=== PATIENT | male | born 1950 | race Caucasian/White ===

== ENCOUNTER 2024-11-06 12:12 | Inpatient (IN) | payer MEDICARE ==
[2024-11-06] VITALS (10 sets, daily range): BP systolic 111–159; BP diastolic 59–68; TEMP 98.2–99.8; O2SAT 96–100
[~2024-11-06] VITALS: Ht 180.3 cm; Wt 94.0 kg
[2024-11-06 13:24] LABS: BASO # 0.1 10^3/uL (0.0-0.2); BASO % 5.0 % (0.0-1.0); EOS # 0.1 10^3/uL (0.0-0.5); EOS % 3.9 % (0.0-3.0); LYMPH # 0.4 10^3/uL (1.5-5.0); LYMPH % 19.6 % (24.0-44.0); MONO # 0.2 10^3/uL (0.0-0.8); MONO % 10.6 % (2.0-8.0); NEUTROPHILS # 1.1 10^3/uL (1.5-8.5); NEUTROPHILS % 59.2 % (36.0-66.0); PLATELET COUNT, AUTOMATED 120 10^3/uL (150-450)
[2024-11-06 14:02] LABS: ALT/SGPT 20 U/L (7.0-40); AST/SGOT 20 U/L (<34); CALCIUM LEVEL 5.0 MG/DL (8.3-10.6); CARBON DIOXIDE LEVEL 29 MMOL/L (20-31); CHLORIDE LEVEL 102 MMOL/L (98-107); CREATININE FOR GFR 1.25 MG/DL (0.70-1.30); GLOMERULAR FILTRATION RATE 61.6 (>42); MAGNESIUM LEVEL < 0.5 MG/DL (1.8-2.4); POTASSIUM SERUM 2.8 MMOL/L (3.5-5.1); SODIUM LEVEL 144 MMOL/L (136-145)
[2024-11-06] MEDS ORDERED: LENA5CAP PO (14:20)
[2024-11-06] MEDS ORDERED: TAMS1CAP17 PO (14:22)
[2024-11-06] MEDS ORDERED: LISI40TA10 PO (14:22)
[2024-11-06] MEDS ORDERED: SILD20TA64 PO (14:23)
[2024-11-06] MEDS ORDERED: ELIQ5TAB PO (14:24)
[2024-11-06] MEDS ORDERED: MAGN400T2 PO (14:27)
[2024-11-06] MEDS ORDERED: POTA99TA10 PO (14:27)
[2024-11-06] MEDS ORDERED: METO1TAB33 PO (14:31)
[2024-11-06] MEDS ORDERED: SPIR-10 PO (14:31)
[2024-11-06] MEDS ORDERED: TORS20TA2 PO (14:31)
[2024-11-06] MEDS ORDERED: PREG75CA3 PO (14:33)
[2024-11-06] MEDS ORDERED: DIGO0.123 PO (14:33)
[2024-11-06] MEDS ORDERED: D 1010004 PO (14:35)
[2024-11-06] MEDS ORDERED: THERTAB52 PO (14:35)
[2024-11-06] MEDS ORDERED: GNP1000T11 PO (14:35)
[2024-11-06] MEDS ORDERED: CO-E200C PO (14:36)
[2024-11-06] MEDS ORDERED: B-12100010 PO (14:38)
[2024-11-06] MEDS ORDERED: TRAD5TAB PO (14:38)
[2024-11-06] MEDS ORDERED: OMEP-173 PO (14:38)
[2024-11-06] MEDS ORDERED: HOME MED LIST COMPLETE! XX SCH (14:40)
[2024-11-06] MEDS: MAG SULF 1GM/100ML (MAG RUN) 1 GM in IV 1 EA IV ONE (14:43)
[2024-11-06] MEDS: CALCIUM CHLORIDE 10% 1 GM in D5W 100 ML IV SCH (15:55)
[2024-11-06] MEDS ORDERED: ISOVUE-370 76% 100 ML VIAL As Ordered ONE (16:56)
[2024-11-06] MEDS: KCL 40MEQ in NS 1000ML 1,000 ML IV SCH (17:50)
[2024-11-06] MEDS: POTASSIUM CHLORIDE 10MEQ SR TABLET PO ONE (17:50)
[2024-11-06] MEDS: NS (Normal Saline) 0.9% 1,000 ML IV ONE (17:51)
[2024-11-06] MEDS: CALCIUM GLUCONATE 1,000 MG in DEXTROSE 5% (D5W) MINI-BAG PLU 100 ML IV SCH (20:58)
[2024-11-06] MEDS: TAMSULOSIN 0.4 MG CAP PO SCH (20:58)
[2024-11-06] MEDS: APIXABAN 5 MG TAB PO SCH (20:59)
[2024-11-06] MEDS: METOPROLOL SUCC. 50 MG *XL* TAB PO SCH (20:59)
[2024-11-06] MEDS ORDERED: ENTER DRUG NAME HERE (PATIENT'S OWN MED) PO SCH (21:00)
[2024-11-06] MEDS: MAG SULF 1GM/100ML (MAG RUN) 1 GM in IV 1 EA IV SCH (21:05)
[2024-11-06] MEDS: ACETAMINOPHEN 325 MG TAB PO ONE (22:00)
[2024-11-06] MEDS: DIGOXIN 0.125 MG TAB PO SCH (22:01)
[2024-11-07 02:03] LABS: CALCIUM LEVEL 5.5 MG/DL (8.3-10.6); CARBON DIOXIDE LEVEL 27.0 MMOL/L (20-31); CHLORIDE LEVEL 105.0 MMOL/L (98-107); CREATININE FOR GFR 1.0 MG/DL (0.70-1.30); GLOMERULAR FILTRATION RATE 80.5 (>42); MAGNESIUM LEVEL 1.3 MG/DL (1.8-2.4); POTASSIUM SERUM 2.8 MMOL/L (3.5-5.1); SODIUM LEVEL 143.0 MMOL/L (136-145)
[2024-11-07] MEDS ORDERED: CALCIUM CHLORIDE 10% 1 GM in D5W 100 ML IV ONE (02:10)
[2024-11-07] MEDS: MAG SULF 1GM/100ML (MAG RUN) 1 GM in IV 1 EA IV SCH (02:40)
[2024-11-07] MEDS: POTASSIUM CHLORIDE 10MEQ SR TABLET PO ONE ×2 (02:40→12:39)
[2024-11-07] MEDS: CALCIUM GLUCONATE 1,000 MG in DEXTROSE 5% (D5W) MINI-BAG PLU 100 ML IV ONE (03:34)
[2024-11-07 03:56] VITALS: BP 116/61; TEMP 99.8; O2SAT 98
[2024-11-07] MEDS: ACETAMINOPHEN 500 MG TAB PO ONE (04:19)
[2024-11-07 06:31] LABS: PLATELET COUNT, AUTOMATED 110 10^3/uL (150-450)
[2024-11-07 07:00] LABS: CALCIUM LEVEL 5.8 MG/DL (8.3-10.6); CARBON DIOXIDE LEVEL 26.0 MMOL/L (20-31); CHLORIDE LEVEL 107.0 MMOL/L (98-107); CREATININE FOR GFR 0.94 MG/DL (0.70-1.30); GLOMERULAR FILTRATION RATE 86.7 (>42); MAGNESIUM LEVEL 1.8 MG/DL (1.8-2.4); POTASSIUM SERUM 3.3 MMOL/L (3.5-5.1); SODIUM LEVEL 143.0 MMOL/L (136-145)
[2024-11-07 07:38] VITALS: TEMP 98.7; O2SAT 98
[2024-11-07] MEDS: OMEPRAZOLE 20MG CAP PO SCH (08:46)
[2024-11-07] MEDS: PREGABALIN 75 MG CAP PO SCH (08:46)
[2024-11-07] MEDS: CYANOCOBALAMIN 500 MCG TAB PO SCH (08:47)
[2024-11-07] MEDS ORDERED: DIGOXIN 0.125 MG TAB PO SCH (09:00)
[2024-11-07 11:35] VITALS: BP 119/58; TEMP 98.3; O2SAT 98
[2024-11-07] MEDS: CALCIUM GLUCONATE 1,000 MG in DEXTROSE 5% (D5W) MINI-BAG PLU 100 ML IV SCH (12:39)
[2024-11-07] MEDS: KCL 20MEQ in NS 1000ML 1,000 ML IV SCH (12:43)
[2024-11-07] MEDS: CALCIUM CARBONATE 500 MG CHEW U/D PO SCH (14:38)
[2024-11-07] MEDS: MAGNESIUM OXIDE 400 MG TAB PO SCH (14:38)
[2024-11-07 15:52] VITALS: BP 131/61; TEMP 97.6; O2SAT 99
[2024-11-07 19:57] VITALS: BP 129/66; TEMP 97.7; O2SAT 98
[2024-11-07 23:56] VITALS: BP 107/57; TEMP 97.8; O2SAT 95
[2024-11-08] MEDS: ACETAMINOPHEN 325 MG TAB PO PRN (03:11)
[2024-11-08 03:19] VITALS: BP 106/64; TEMP 96.9; O2SAT 98
[2024-11-08 03:59] VITALS: BP 119/57; TEMP 97.1; O2SAT 98
[2024-11-08 06:18] LABS: PLATELET COUNT, AUTOMATED 102 10^3/uL (150-450)
[2024-11-08 06:47] LABS: ATYPICAL LYMPH 1 % (0-5); BASOPHILS 14 % (0-1); EOSINOPHILS 10 % (0-3); LYMPHOCYTES 23 % (16-44); MONOCYTES 5 % (0-5); NEUTROPHILS 43 % (28-66)
[2024-11-08 06:48] LABS: PLATELET ESTIMATE DECREASED (NORMAL)
[2024-11-08 06:51] LABS: CALCIUM LEVEL 5.7 MG/DL (8.3-10.6); CARBON DIOXIDE LEVEL 25 MMOL/L (20-31); CHLORIDE LEVEL 111 MMOL/L (98-107); CREATININE FOR GFR 0.78 MG/DL (0.70-1.30); GLOMERULAR FILTRATION RATE > 90.0 (>42); MAGNESIUM LEVEL 1.4 MG/DL (1.8-2.4); POTASSIUM SERUM 3.7 MMOL/L (3.5-5.1); SODIUM LEVEL 142 MMOL/L (136-145)
[2024-11-08] MEDS: CALCIUM GLUCONATE 1,000 MG in DEXTROSE 5% (D5W) MINI-BAG PLU 100 ML IV ONE (07:04)
[2024-11-08 07:15] VITALS: BP 126/64; TEMP 97.4; O2SAT 97
[2024-11-08] MEDS ORDERED: MAG SULF 1GM/100ML (MAG RUN) 1 GM in IV 1 EA IV ONE (07:25)
[2024-11-08] MEDS: MAG SULF 1GM/100ML (MAG RUN) 1 GM in IV 1 EA IV SCH (07:42)
[2024-11-08 07:51] LABS: PHOSPHORUS LEVEL 1.8 MG/DL (2.4-5.1); PTH INTACT 281.2 PG/ML (18.5-88.0)
[2024-11-08] MEDS: POTASSIUM CHLORIDE 10MEQ SR TABLET PO SCH (09:14)
[2024-11-08] MEDS: CALCITRIOL 0.25 MCG CAP (S0169) PO SCH (10:49)
[2024-11-08] MEDS: SPIRONOLACTONE 25 MG TAB PO SCH (10:49)
[2024-11-08] MEDS: SODIUM PHOSPHATE INJ 20 MMOL in D5W 250 ML IV ONE (12:16)
[2024-11-08] MEDS: CALCIUM CARBONATE 500 MG CHEW U/D PO SCH (12:17)
[2024-11-08 12:21] VITALS: BP 128/79; O2SAT 93
[2024-11-08 19:11] VITALS: BP 164/72; TEMP 97.3; O2SAT 98
[2024-11-08 23:01] VITALS: BP 141/72; TEMP 98.1; O2SAT 96
[2024-11-09 03:04] VITALS: BP 138/62; TEMP 97; O2SAT 95
[2024-11-09 05:49] LABS: BASO # 0.2 10^3/uL (0.0-0.2); BASO % 12.4 % (0.0-1.0); EOS # 0.1 10^3/uL (0.0-0.5); EOS % 9.3 % (0.0-3.0); LYMPH # 0.3 10^3/uL (1.5-5.0); LYMPH % 25.6 % (24.0-44.0); MONO # 0.1 10^3/uL (0.0-0.8); MONO % 8.5 % (2.0-8.0); NEUTROPHILS % 42.6 % (36.0-66.0); PLATELET COUNT, AUTOMATED 131 10^3/uL (150-450)
[2024-11-09 05:52] LABS: NEUTROPHILS # 0.6 10^3/uL (1.5-8.5)
[2024-11-09 06:24] LABS: CALCIUM LEVEL 6.5 MG/DL (8.3-10.6); CARBON DIOXIDE LEVEL 27 MMOL/L (20-31); CHLORIDE LEVEL 110 MMOL/L (98-107); CREATININE FOR GFR 0.73 MG/DL (0.70-1.30); GLOMERULAR FILTRATION RATE > 90.0 (>42); MAGNESIUM LEVEL 1.9 MG/DL (1.8-2.4); PHOSPHORUS LEVEL 1.8 MG/DL (2.4-5.1); POTASSIUM SERUM 3.6 MMOL/L (3.5-5.1); SODIUM LEVEL 141 MMOL/L (136-145)
[2024-11-09 08:29] VITALS: BP 144/64
[2024-11-09] MEDS: CALCIUM GLUCONATE 1,000 MG in DEXTROSE 5% (D5W) MINI-BAG PLU 100 ML IV ONE (08:30)
[2024-11-09] MEDS: MAG SULF 1GM/100ML (MAG RUN) 1 GM in IV 1 EA IV SCH (09:46)
[2024-11-09] MEDS ORDERED: LOPE2CAP PO (11:56)
[2024-11-09] MEDS ORDERED: POTA-136 PO (11:56)
[2024-11-09] MEDS ORDERED: CALC200T15 PO ×2 (11:56→12:22)
[2024-11-09] MEDS ORDERED: POTA50TAB PO (11:56)
[2024-11-09] MEDS ORDERED: CALC1CAP31 PO (11:56)
[2024-11-09] MEDS: SODIUM PHOSPHATE INJ 20 MMOL in D5W 250 ML IV ONE (12:19)
[2024-11-09] MEDS ORDERED: POTA-298 PO (12:22)
[2024-11-09] MEDS ORDERED: PHOS1TAB3 PO (12:22)
[2024-11-09] MEDS: LOPERAMIDE 2 MG CAPLET PO PRN (12:22)
== END 2024-11-09 15:47 | disposition home or self-care (01) | DRG 392 ==
LOC: M ED 12:12 → M ED INP 16:35 → M PCU 19:15
PROVIDERS: ADMIT Internal Medicine; ATTEND Internal Medicine
DX: R19.7 Diarrhea, unspecified (principal); D61.818 Other pancytopenia; E83.42 Hypomagnesemia; K21.9 Gastro-esophageal reflux disease without esophagitis; D46.9 Myelodysplastic syndrome, unspecified; I48.91 Unspecified atrial fibrillation; E87.6 Hypokalemia; N40.0 Benign prostatic hyperplasia without lower urinary tract symptoms; E53.8 Deficiency of other specified B group vitamins; I50.9 Heart failure, unspecified; R91.1 Solitary pulmonary nodule; E83.51 Hypocalcemia; E83.39 Other disorders of phosphorus metabolism; E11.51 Type 2 diabetes mellitus with diabetic peripheral angiopathy without gangrene; Z79.01 Long term (current) use of anticoagulants; I11.0 Hypertensive heart disease with heart failure; Z79.899 Other long term (current) drug therapy

== ENCOUNTER 2024-12-14 16:09 | Inpatient (IN) | payer MEDICARE ==
[~2024-12-14] VITALS: Ht 180.3 cm; Wt 92.9 kg
[~2024-12-14 16:09] MED LIST: B-12100010 PO; CALC1CAP31 PO; CALC200T15 PO; CO-E200C PO; D 1010004 PO; DIGO0.123 PO; ELIQ5TAB PO; GNP1000T11 PO; LENA5CAP PO; LISI40TA10 PO; LOPE2CAP PO; MAGN400T2 PO; METO1TAB33 PO; OMEP-173 PO; PHOS1TAB3 PO; POTA-136 PO; POTA-298 PO; POTA50TAB PO; POTA99TA10 PO; PREG75CA3 PO; SILD20TA64 PO; SPIR-10 PO; TAMS1CAP17 PO; THERTAB52 PO; TORS20TA2 PO; TRAD5TAB PO
[2024-12-14 16:55] LABS: BASO # 0.0 10^3/uL (0.0-0.2); BASO % 2.0 % (0.0-1.0); EOS # 0.0 10^3/uL (0.0-0.5); EOS % 3.9 % (0.0-3.0); LYMPH # 0.3 10^3/uL (1.5-5.0); LYMPH % 49.0 % (24.0-44.0); MONO # 0.1 10^3/uL (0.0-0.8); MONO % 11.8 % (2.0-8.0); NEUTROPHILS % 31.3 % (36.0-66.0); PLATELET COUNT, AUTOMATED 104 10^3/uL (150-450)
[2024-12-14] MEDS: ACETAMINOPHEN *IV* 1,000 MG in IV 1 EA IV ONE (16:55)
[2024-12-14] MEDS: MORPHINE 4 MG/ML 1 ML VIAL IV ONE (16:55)
[2024-12-14] MEDS: METOPROLOL 5 MG/5 ML VIAL IV SCH (16:57)
[2024-12-14 17:02] LABS: CPK CREATINE PHOSPHOKINASE 25 U/L (46-171)
[2024-12-14] MEDS: NS 500 ML IV ONE (17:02)
[2024-12-14 17:06] VITALS: BP 141/65
[2024-12-14 17:07] LABS: DIGOXIN LEVEL 1.1 NG/ML (0.8-2.0)
[2024-12-14 17:11] LABS: ALT/SGPT 14 U/L (7.0-40); AST/SGOT 12 U/L (<34); CALCIUM LEVEL 9.2 MG/DL (8.3-10.6); CARBON DIOXIDE LEVEL 24 MMOL/L (20-31); CHLORIDE LEVEL 104 MMOL/L (98-107); CK-MB VALUE MASS < 1.0 NG/ML (<3.6); CREATININE FOR GFR 1.42 MG/DL (0.70-1.30); FREE T4 1.24 NG/DL (0.89-1.76); GLOMERULAR FILTRATION RATE 52.5 (>42); MAGNESIUM LEVEL 1.2 MG/DL (1.8-2.4); PHOSPHORUS LEVEL 1.2 MG/DL (2.4-5.1); POTASSIUM SERUM 3.7 MMOL/L (3.5-5.1); SODIUM LEVEL 142 MMOL/L (136-145)
[2024-12-14 17:17] LABS: INR 1.29
[2024-12-14] MEDS: DIGOXIN INJ 0.5 MG/2 ML AMP IV STA (17:20)
[2024-12-14 17:24] LABS: NEUTROPHILS # 0.2 10^3/uL (1.5-8.5)
[2024-12-14] MEDS: NEUTRA-PHOS 1.5 GM PACKET PO ONE (17:35)
[2024-12-14] MEDS ORDERED: ISOVUE-370 76% 100 ML VIAL As Ordered ONE (17:36)
[2024-12-14] MEDS: SODIUM CHLORIDE 0.9% 1000 ML IV STA (17:49)
[2024-12-14] MEDS: MAG SULF 1GM/100ML (MAG RUN) 1 GM in IV 1 EA IV ONE (17:49)
[2024-12-14 18:55] LABS: CK-MB VALUE MASS < 1.0 NG/ML (<3.6)
[2024-12-14 18:56] LABS: CPK CREATINE PHOSPHOKINASE 23 U/L (46-171)
[2024-12-14 19:11] LABS: KETONE, URINE AUTO RFX NEGATIVE (NEGATIVE); LEUKOCYTE ESTERASE UR AUTO RFX NEGATIVE (NEGATIVE); MUCUS, URINE RFX SMALL (NEGATIVE); NITRITE, URINE AUTO RFX NEGATIVE (NEGATIVE); RBC, URINE AUTO RFX 54 /HPF (0-3); SQUAM EPITHELIAL CELL UR AURFX 0 /HPF (0-6); WBC, URINE AUTO RFX 1 /HPF (0-3)
[2024-12-14] MEDS: METOPROLOL TART 50 MG TAB PO ONE (19:33)
[2024-12-14] MEDS: PIPERACILLIN/TAZOBACTAM SOD 4.5 GM in DEXTROSE 5% (D5W) ADV/MINI-BAG 50 ML IV ONE (19:34)
[2024-12-14] MEDS: AMIODARONE HCL 150 MG in IV 1 EA IV SCH (19:46)
[2024-12-14] MEDS: AMIODARONE HCL 360 MG in IV 1 EA IV SCH (19:51)
[2024-12-14] MEDS: VANCOMYCIN HCL 1,000 MG, VIAL MATE ADAPTER 1 EACH in NS 250 ML IV ONE (20:12)
[2024-12-14] MEDS: NOREPINEPHRINE 4MG IN D5 250ML 4 MG in IV 1 EA IV SCH (20:16)
[2024-12-14] MEDS ORDERED: HOME MED LIST COMPLETE! XX SCH (20:30)
[2024-12-14] MEDS: APIXABAN 5 MG TAB PO SCH (21:00)
[2024-12-14] MEDS ORDERED: LEVALBUTEROL 1.25 MG 0.5ML CONCENTRATE NEB NEB PRN (21:25)
[2024-12-14] MEDS ORDERED: ACETAMINOPHEN 325 MG TAB PO PRN (21:25)
[2024-12-14] MEDS ORDERED: MOM 30 ML SUSPENSION UDC PO PRN (21:25)
[2024-12-14] MEDS ORDERED: MAALOX 30 ML SUSP *UDC PO PRN (21:25)
[2024-12-14] MEDS ORDERED: ACETAMINOPHEN *IV* 1,000 MG in IV 1 EA IV PRN (21:25)
[2024-12-14] MEDS ORDERED: PIPERACILLIN/TAZOBACTAM SOD 3.375 GM in DEXTROSE 5% (D5W) ADV/MINI-BAG 50 ML IV SCH (21:25)
[2024-12-14] MEDS ORDERED: VASOPRESSIN IN 0.9 % NACL 20UNIT/100ML INFUS.BTL As Ordered ONE (21:41)
[2024-12-14] MEDS: VASOPRESSIN IN 0.9 % NACL 20 UNIT in IV 1 EA IV SCH (21:49)
[2024-12-14 22:02] LABS: ABG BASE EXCESS -11.2 (-2.0-2.0); ABG HCO3 13.9 MMOL/L (22.0-26.0); ABG O2 SATURATION 99.1 % (95.0-99.0); ABG PARTIAL PRESSURE CO2 28.9 mmHg (35.0-45.0); ABG PARTIAL PRESSURE O2 207.1 mmHg (75.0-100.0); ABG STANDARD HCO3 15.5 MMOL/L. (22.0-26.0); ABG TOTAL CO2 14.8 MMOL/L (23.0-31.0); ABG pH (ARTERIAL) 7.301 UNITS (7.350-7.450)
[2024-12-14] MEDS ORDERED: LIDOCAINE 2% 100 MG/5 ML SDV (FOR ANES.) As Ordered ONE (22:39)
[2024-12-14] MEDS ORDERED: ETOMIDATE 20 MG/10 ML VIAL As Ordered ONE (22:39)
[2024-12-14] MEDS ORDERED: ROCURONIUM BROMIDE 50MG/5ML VIAL As Ordered ONE (22:39)
[2024-12-14] MEDS ORDERED: MIDAZOLAM INJ 2 MG/2 ML VIAL As Ordered ONE (22:41)
[2024-12-14] MEDS ORDERED: VASOPRESSIN INJ 20UNITS/ML 1ML VIAL As Ordered ONE (22:48)
[2024-12-14] MEDS ORDERED: PHENYLEPHRINE 10MG/ML 1ML VIAL As Ordered ONE (22:49)
[2024-12-14] MEDS ORDERED: CALCIUM CHLORIDE 10% 1 GM/10 ML SYR As Ordered ONE (23:48)
[2024-12-14] MEDS ORDERED: SUCCINYLCHOLINE 100MG/5ML SYRINGE As Ordered ONE (23:49)
[2024-12-14] MEDS ORDERED: PHENYLephrine 500MCG 5ML (100MCG/ML) SYRINGE As Ordered ONE (23:49)
[2024-12-14] MEDS ORDERED: SODIUM BICARBONATE 8.4% INJ 50ML SYRINGE As Ordered ONE (23:49)
[2024-12-15] VITALS (88 sets, daily range): BP systolic 74–173; BP diastolic 35–66; TEMP 95–98.6; O2SAT 76–100
[2024-12-15] MEDS ORDERED: INSULIN LISPRO (NovoLOG) PER UNIT As Ordered ONE (00:22)
[2024-12-15] MEDS ORDERED: HYDROmorphone HCL 2 MG/ML 1 ML VIAL As Ordered ONE (00:34)
[2024-12-15 02:28] LABS: ABG BASE EXCESS -9.4 (-2.0-2.0); ABG HCO3 17.3 MMOL/L (22.0-26.0); ABG PARTIAL PRESSURE CO2 40.4 mmHg (35.0-45.0); ABG PARTIAL PRESSURE O2 130.5 mmHg (75.0-100.0); ABG STANDARD HCO3 17.1 MMOL/L. (22.0-26.0); ABG TOTAL CO2 18.5 MMOL/L (23.0-31.0)
[2024-12-15 02:30] LABS: ABG pH (ARTERIAL) 7.249 UNITS (7.350-7.450)
[2024-12-15 02:32] LABS: ABG O2 SATURATION 98.6 % (95.0-99.0)
[2024-12-15] MEDS: MIDAZOLAM INJ 2 MG/2 ML VIAL IV PRN (02:36)
[2024-12-15] MEDS: NOREPINEPHRINE 4MG IN D5 250ML 4 MG in IV 1 EA IV SCH (02:57)
[2024-12-15] MEDS: NS (Normal Saline) 0.9% 1,000 ML IV SCH (02:57)
[2024-12-15] MEDS: fentaNYL CITRATE/NaCl 1,000 MCG in IV 1 EA IV SCH (02:58)
[2024-12-15] MEDS: dexmedeTOMidine 200 MCG in IV 1 EA IV SCH (02:59)
[2024-12-15 03:05] LABS: PLATELET COUNT, AUTOMATED 120 10^3/uL (150-450)
[2024-12-15] MEDS ORDERED: PHENYLEPHRINE HCL INJ 50 MG in D5W 495 ML IV SCH (03:15)
[2024-12-15] MEDS: PHENYLEPHRINE HCL INJ 50 MG in D5W 495 ML IV SCH (03:32)
[2024-12-15] MEDS: PHENYLephrine 500MCG 5ML (100MCG/ML) SYRINGE IV PRN (03:39)
[2024-12-15] MEDS: NS 500 ML IV ONE (03:41)
[2024-12-15 03:56] LABS: CALCIUM LEVEL 8.2 MG/DL (8.3-10.6); CARBON DIOXIDE LEVEL 19.0 MMOL/L (20-31); CHLORIDE LEVEL 109.0 MMOL/L (98-107); CREATININE FOR GFR 2.14 MG/DL (0.70-1.30); GLOMERULAR FILTRATION RATE 32.1 (>42); MAGNESIUM LEVEL 1.3 MG/DL (1.8-2.4); PHOSPHORUS LEVEL 4.4 MG/DL (2.4-5.1); POTASSIUM SERUM 4.3 MMOL/L (3.5-5.1); SODIUM LEVEL 143.0 MMOL/L (136-145)
[2024-12-15] MEDS: PIPERACILLIN/TAZOBACTAM SOD 4.5 GM in DEXTROSE 5% (D5W) ADV/MINI-BAG 50 ML IV SCH (04:33)
[2024-12-15 06:07] LABS: ABG BASE EXCESS -9.1 (-2.0-2.0); ABG HCO3 16.0 MMOL/L (22.0-26.0); ABG O2 SATURATION 98.8 % (95.0-99.0); ABG PARTIAL PRESSURE CO2 32.0 mmHg (35.0-45.0); ABG PARTIAL PRESSURE O2 147.7 mmHg (75.0-100.0); ABG STANDARD HCO3 17.2 MMOL/L. (22.0-26.0); ABG TOTAL CO2 17.0 MMOL/L (23.0-31.0); ABG pH (ARTERIAL) 7.317 UNITS (7.350-7.450)
[2024-12-15 06:22] LABS: PLATELET COUNT, AUTOMATED 110 10^3/uL (150-450)
[2024-12-15] MEDS: MAG SULF 1GM/100ML (MAG RUN) 1 GM in IV 1 EA IV ONE ×2 (06:32→18:02)
[2024-12-15 06:48] LABS: CALCIUM LEVEL 7.6 MG/DL (8.3-10.6); CARBON DIOXIDE LEVEL 16.0 MMOL/L (20-31); CHLORIDE LEVEL 104.0 MMOL/L (98-107); CREATININE FOR GFR 2.35 MG/DL (0.70-1.30); GLOMERULAR FILTRATION RATE 28.7 (>42); MAGNESIUM LEVEL 1.3 MG/DL (1.8-2.4); POTASSIUM SERUM 4.2 MMOL/L (3.5-5.1); SODIUM LEVEL 136.0 MMOL/L (136-145)
[2024-12-15] MEDS ORDERED: AMIODARONE HCL 360 MG/200 ML PREMIXED BAG As Ordered ONE (08:04)
[2024-12-15] MEDS: AMIODARONE HCL 360 MG in IV 1 EA IV SCH (08:13)
[2024-12-15] MEDS: LR 1,000 ML IV ONE (08:20)
[2024-12-15] MEDS ORDERED: VANCOMYCIN HCL 1,000 MG in IV FLUID PLACE HOLDER 1 EA IV ONE (08:45)
[2024-12-15] MEDS ORDERED: MEROPENEM 1 GM in IV 1 EA IV SCH (08:45)
[2024-12-15] MEDS ORDERED: GLUCAGON INJ 1 MG VIAL SC PRN (08:45)
[2024-12-15] MEDS ORDERED: GLUCOSE 4 GM CHEW PO PRN (08:45)
[2024-12-15] MEDS ORDERED: DEXTROSE 50% 50 ML SYRINGE IV PRN (08:45)
[2024-12-15] MEDS: EPINEPHrine HCL INJ 16 MG in D5W 984 ML IV SCH (08:49)
[2024-12-15] MEDS ORDERED: ACETAMINOPHEN *IV* 1,000 MG in IV 1 EA IV PRN (09:00)
[2024-12-15] MEDS ORDERED: DOCUSATE SODIUM 100 MG CAPSULE PO SCH (09:00)
[2024-12-15] MEDS ORDERED: MAG SULF 1GM/100ML (MAG RUN) 1 GM in IV 1 EA IV SCH (09:10)
[2024-12-15] MEDS: PANTOPRAZOLE 40MG VIAL IV SCH (09:21)
[2024-12-15] MEDS ORDERED: EPINEPHrine HCL INJ 4 MG in D5W 246 ML IV SCH (10:00)
[2024-12-15 10:23] LABS: VANCOMYCIN RANDOM 10.1 UG/ML
[2024-12-15] MEDS: MICAFUNGIN SODIUM 100 MG in DEXTROSE 5% (D5W) MINI-BAG PLU 100 ML IV SCH (10:25)
[2024-12-15] MEDS: HYDROCORTISONE 100 MG/2 ML VIAL IV SCH (10:26)
[2024-12-15] MEDS: HEPARIN SOD 5000 UNITS/ML 1 ML VIAL/SYRINGE SQ SCH (10:26)
[2024-12-15] MEDS: INSULIN LISPRO (NovoLOG) PER UNIT SC SCH (10:27)
[2024-12-15] MEDS ORDERED: MEROPENEM 2 GM in SODIUM CHLORIDE 0.9% INJ 100 ML IV SCH (11:00)
[2024-12-15] MEDS: PHENYLEPHRINE HCL INJ 100 MG in D5W 990 ML IV SCH (11:10)
[2024-12-15] MEDS: DIGOXIN INJ 0.5 MG/2 ML AMP IV STA (11:19)
[2024-12-15] MEDS ORDERED: SODIUM CHLORIDE 0.9% INJ 10 ML SYR CRRT PRN ×4 (11:20→12:50)
[2024-12-15] MEDS: HEPARIN 1,000 UNITS/ML 10 ML VIAL (FOR RADIOLOGY & DIALYSIS ONLY) CRRT PRN ×2 (11:40)
[2024-12-15] MEDS ORDERED: INSULIN LISPRO (NovoLOG) PER UNIT SC SCH ×2 (12:00)
[2024-12-15] MEDS ORDERED: VANCOMYCIN HCL 1,250 MG, VIAL MATE ADAPTER 1 EACH in NS 250 ML IV SCH (12:00)
[2024-12-15] MEDS: MEROPENEM 1 GM in IV 1 EA IV ONE (12:07)
[2024-12-15] MEDS: MIDAZOLAM 100MG/100ML-0.9%NACL 100 MG in IV 1 EA IV SCH (12:12)
[2024-12-15 12:35] LABS: ABG BASE EXCESS -15.2 (-2.0-2.0); ABG HCO3 12.4 MMOL/L (22.0-26.0); ABG O2 SATURATION 93.9 % (95.0-99.0); ABG PARTIAL PRESSURE CO2 35.7 mmHg (35.0-45.0); ABG PARTIAL PRESSURE O2 84.0 mmHg (75.0-100.0); ABG STANDARD HCO3 12.7 MMOL/L. (22.0-26.0); ABG TOTAL CO2 13.5 MMOL/L (23.0-31.0)
[2024-12-15 12:36] LABS: ABG pH (ARTERIAL) 7.160 UNITS (7.350-7.450)
[2024-12-15] MEDS ORDERED: SODIUM CHLORIDE 0.9% 1000 ML CRRT SCH (12:50)
[2024-12-15] MEDS ORDERED: HEPARIN 1,000 UNITS/ML 10 ML VIAL (FOR RADIOLOGY & DIALYSIS ONLY) CRRT PRN ×2 (12:50)
[2024-12-15 13:17] LABS: PLATELET COUNT, AUTOMATED 133 10^3/uL (150-450)
[2024-12-15 13:28] LABS: INR 2.67
[2024-12-15] MEDS: SODIUM BICARBONATE 150 MEQ in STERILE WATER LITER BAG 1,000 ML IV SCH ×2 (13:39→22:55)
[2024-12-15] MEDS: VANCOMYCIN HCL 500 MG in DEXTROSE 5% (D5W) MINI-BAG PLU 100 ML IV ONE (13:42)
[2024-12-15 13:54] LABS: CALCIUM LEVEL 6.7 MG/DL (8.3-10.6); CARBON DIOXIDE LEVEL 13.0 MMOL/L (20-31); CHLORIDE LEVEL 96.0 MMOL/L (98-107); CREATININE FOR GFR 2.77 MG/DL (0.70-1.30); GLOMERULAR FILTRATION RATE 23.6 (>42); PHOSPHORUS LEVEL 6.6 MG/DL (2.4-5.1); POTASSIUM SERUM 4.6 MMOL/L (3.5-5.1); SODIUM LEVEL 126.0 MMOL/L (136-145)
[2024-12-15] MEDS ORDERED: INSULIN IV RATE CHANGE DOCUMENTATION ML/HR XX SCH ×3 (14:20)
[2024-12-15] MEDS ORDERED: NOREPINEPHRINE 4 MG IN D5W 250 ML IVBAG (16 MCG/ML) As Ordered ONE (14:51)
[2024-12-15] MEDS: INSULIN REGULAR IN 0.9 % NACL 100 UNIT in IV 1 EA IV SCH (15:00)
[2024-12-15] MEDS: NOREPINEPHRINE BITARTRATE 16 MG in D5W 484 ML IV SCH (16:04)
[2024-12-15] MEDS: INSULIN IV RATE CHANGE DOCUMENTATION ML/HR XX SCH (16:09)
[2024-12-15] MEDS: VASOPRESSIN IN 0.9 % NACL 20 UNIT in IV 1 EA IV SCH (16:24)
[2024-12-15 17:10] LABS: ABG BASE EXCESS -13.4 (-2.0-2.0); ABG HCO3 12.9 MMOL/L (22.0-26.0); ABG O2 SATURATION 95.5 % (95.0-99.0); ABG PARTIAL PRESSURE CO2 31.2 mmHg (35.0-45.0); ABG PARTIAL PRESSURE O2 89.6 mmHg (75.0-100.0); ABG STANDARD HCO3 14.0 MMOL/L. (22.0-26.0); ABG TOTAL CO2 13.8 MMOL/L (23.0-31.0)
[2024-12-15 17:12] LABS: ABG pH (ARTERIAL) 7.233 UNITS (7.350-7.450)
[2024-12-15] MEDS: FILGRASTIM 480 MCG/0.8 ML SYRINGE **SC ADMINISTRATION ONLY SC ONE (18:01)
[2024-12-15 18:36] LABS: PLATELET COUNT, AUTOMATED 101 10^3/uL (150-450)
[2024-12-15 18:55] LABS: CALCIUM LEVEL 6.7 MG/DL (8.3-10.6); CARBON DIOXIDE LEVEL 14.0 MMOL/L (20-31); CHLORIDE LEVEL 93.0 MMOL/L (98-107); CREATININE FOR GFR 2.3 MG/DL (0.70-1.30); GLOMERULAR FILTRATION RATE 29.4 (>42); MAGNESIUM LEVEL 1.4 MG/DL (1.8-2.4); PHOSPHORUS LEVEL 6.2 MG/DL (2.4-5.1); POTASSIUM SERUM 4.2 MMOL/L (3.5-5.1); SODIUM LEVEL 124.0 MMOL/L (136-145)
[2024-12-15] MEDS: CALCIUM GLUCONATE 1,000 MG, VIAL MATE ADAPTER 1 EACH in NS 100 ML IV SCH (19:40)
[2024-12-15] MEDS: MAG SULF 1GM/100ML (MAG RUN) 1 GM in IV 1 EA IV SCH (19:53)
[2024-12-15] MEDS: NOREPINEPHRINE BITARTRATE IV SCH (20:05)
[2024-12-15] MEDS: NS IV SCH (20:05)
[2024-12-15 21:21] LABS: ABG STANDARD HCO3 11.5 MMOL/L. (22.0-26.0)
[2024-12-15 21:24] LABS: ABG BASE EXCESS -17.2 (-2.0-2.0); ABG HCO3 10.5 MMOL/L (22.0-26.0); ABG O2 SATURATION 98.1 % (95.0-99.0); ABG PARTIAL PRESSURE CO2 31.4 mmHg (35.0-45.0); ABG PARTIAL PRESSURE O2 146.5 mmHg (75.0-100.0); ABG TOTAL CO2 11.5 MMOL/L (23.0-31.0)
[2024-12-15 21:25] LABS: ABG pH (ARTERIAL) 7.143 UNITS (7.350-7.450)
[2024-12-15] MEDS: MEROPENEM 1 GM in IV 1 EA IV SCH (21:42)
[2024-12-15] MEDS: VANCOMYCIN HCL 1,000 MG, VIAL MATE ADAPTER 1 EACH in NS 250 ML IV SCH (21:43)
[2024-12-16] VITALS (70 sets, daily range): BP systolic 132–211; BP diastolic 37–54; TEMP 95.2–96.3; O2SAT 90–100
[2024-12-16 00:26] LABS: PLATELET COUNT, AUTOMATED 86 10^3/uL (150-450)
[2024-12-16 00:36] LABS: CALCIUM LEVEL 6.6 MG/DL (8.3-10.6); CARBON DIOXIDE LEVEL 11.0 MMOL/L (20-31); CHLORIDE LEVEL 95.0 MMOL/L (98-107); CREATININE FOR GFR 2.15 MG/DL (0.70-1.30); GLOMERULAR FILTRATION RATE 31.9 (>42); MAGNESIUM LEVEL 1.9 MG/DL (1.8-2.4); PHOSPHORUS LEVEL 6.5 MG/DL (2.4-5.1); POTASSIUM SERUM 4.5 MMOL/L (3.5-5.1); SODIUM LEVEL 126.0 MMOL/L (136-145)
[2024-12-16] MEDS: CALCIUM GLUCONATE 1,000 MG, VIAL MATE ADAPTER 1 EACH in NS 100 ML IV SCH ×3 (01:27→14:11)
[2024-12-16] MEDS: MAG SULF 1GM/100ML (MAG RUN) 1 GM in IV 1 EA IV ONE ×2 (01:27→08:26)
[2024-12-16 06:40] LABS: ABG HCO3 9.0 MMOL/L (22.0-26.0); ABG TOTAL CO2 9.9 MMOL/L (23.0-31.0)
[2024-12-16 06:43] LABS: ABG BASE EXCESS -19.1 (-2.0-2.0); ABG O2 SATURATION 98.0 % (95.0-99.0); ABG PARTIAL PRESSURE CO2 29.2 mmHg (35.0-45.0); ABG PARTIAL PRESSURE O2 141.4 mmHg (75.0-100.0); ABG STANDARD HCO3 10.1 MMOL/L. (22.0-26.0)
[2024-12-16 06:44] LABS: ABG pH (ARTERIAL) 7.108 UNITS (7.350-7.450)
[2024-12-16 06:53] LABS: PLATELET COUNT, AUTOMATED 68 10^3/uL (150-450)
[2024-12-16 07:45] LABS: ALT/SGPT 3183 U/L (7.0-40); AST/SGOT 5433 U/L (<34); CALCIUM LEVEL 6.5 MG/DL (8.3-10.6); CARBON DIOXIDE LEVEL < 10.0 MMOL/L (20-31); CHLORIDE LEVEL 94 MMOL/L (98-107); CREATININE FOR GFR 2.08 MG/DL (0.70-1.30); GLOMERULAR FILTRATION RATE 33.2 (>42); MAGNESIUM LEVEL 1.9 MG/DL (1.8-2.4); PHOSPHORUS LEVEL 7.1 MG/DL (2.4-5.1); POTASSIUM SERUM 4.9 MMOL/L (3.5-5.1); SODIUM LEVEL 126 MMOL/L (136-145)
[2024-12-16] MEDS: VANCOMYCIN HCL 1,500 MG, VIAL MATE ADAPTER 1 EACH in NS 500 ML IV ONE (08:26)
[2024-12-16 10:36] LABS: D-DIMER QUANT 5.46 ug/mL (<0.5)
[2024-12-16] MEDS: HYDROCORTISONE 100 MG/2 ML VIAL IV SCH (10:59)
[2024-12-16 12:37] LABS: PLATELET COUNT, AUTOMATED 57 10^3/uL (150-450)
[2024-12-16 12:50] LABS: CALCIUM LEVEL 6.9 MG/DL (8.3-10.6); CARBON DIOXIDE LEVEL < 10.0 MMOL/L (20-31); CHLORIDE LEVEL 95 MMOL/L (98-107); CREATININE FOR GFR 1.87 MG/DL (0.70-1.30); GLOMERULAR FILTRATION RATE 37.7 (>42); MAGNESIUM LEVEL 2.0 MG/DL (1.8-2.4); PHOSPHORUS LEVEL 7.6 MG/DL (2.4-5.1); POTASSIUM SERUM 5.1 MMOL/L (3.5-5.1); SODIUM LEVEL 126 MMOL/L (136-145)
[2024-12-16] MEDS: MORPHINE 4 MG/ML 1 ML VIAL IV PRN (18:06)
[2024-12-16] MEDS ORDERED: VANCOMYCIN HCL 1,000 MG, VIAL MATE ADAPTER 1 EACH in NS 250 ML IV SCH (20:00)
== END 2024-12-16 20:41 | disposition expired | DRG 853 ==
LOC: M ED 16:09 → M ED INP 21:25 → M ICU 12-15 01:46
PROVIDERS: ADMIT Student in an Organized Health Care Education/Training Program; ATTEND Student in an Organized Health Care Education/Training Program
PROC: 30233K1 Transfusion of Nonautologous Frozen Plasma into Peripheral Vein, Percutaneous Approach (ICD-10-PCS; 2024-12-14)
PROC: 30233N1 Transfusion of Nonautologous Red Blood Cells into Peripheral Vein, Percutaneous Approach (ICD-10-PCS; 2024-12-14 23:00)
PROC: 0DTE0ZZ Resection of Large Intestine, Open Approach (ICD-10-PCS; principal; 2024-12-15)
PROC: B246ZZZ Ultrasonography of Right and Left Heart (ICD-10-PCS; 2024-12-15)
PROC: 02HV33Z Insertion of Infusion Device into Superior Vena Cava, Percutaneous Approach (ICD-10-PCS; 2024-12-15)
DX: A41.9 Sepsis, unspecified organism (principal); R65.21 Severe sepsis with septic shock; K55.059 Acute (reversible) ischemia of intestine, part and extent unspecified; J96.90 Respiratory failure, unspecified, unspecified whether with hypoxia or hypercapnia; K72.00 Acute and subacute hepatic failure without coma; D84.9 Immunodeficiency, unspecified; D61.818 Other pancytopenia; D68.9 Coagulation defect, unspecified; E87.20 Acidosis, unspecified; N17.9 Acute kidney failure, unspecified; Z66 Do not resuscitate; I10 Essential (primary) hypertension; E11.42 Type 2 diabetes mellitus with diabetic polyneuropathy; I48.91 Unspecified atrial fibrillation; D69.6 Thrombocytopenia, unspecified; D46.9 Myelodysplastic syndrome, unspecified; R19.7 Diarrhea, unspecified; N40.0 Benign prostatic hyperplasia without lower urinary tract symptoms; R57.8 Other shock; D70.9 Neutropenia, unspecified; Z79.01 Long term (current) use of anticoagulants; Z79.899 Other long term (current) drug therapy